=== PATIENT | female | born 1995 | race Caucasian/White ===

== ENCOUNTER → 2019-06-14 14:33 | Outpatient (CLI) | payer BC, SELFPAY ==
[2019-06-14 17:00] LABS: HCG,Quantitative 447 mIU/mL
== END ==
PROVIDERS: Visit Provider Obstetrics & Gynecology
DX: Z34.90 Encounter for supervision of normal pregnancy, unspecified, unspecified trimester (principal)
CPT/HCPCS: 36415; 84702

== ENCOUNTER → 2019-06-18 15:43 | Outpatient (CLI) | payer BC, SELFPAY ==
[2019-06-18 17:58] LABS: HCG,Quantitative 2840 mIU/mL
== END ==
PROVIDERS: Visit Provider Obstetrics & Gynecology
DX: Z34.90 Encounter for supervision of normal pregnancy, unspecified, unspecified trimester (principal)
CPT/HCPCS: 84702

== ENCOUNTER → 2019-06-26 12:28 | Outpatient (CLI) | payer BC, SELFPAY ==
[2019-06-26 18:37] LABS: HCG,Quantitative 25331 mIU/mL
== END ==
PROVIDERS: Visit Provider Obstetrics & Gynecology
DX: O26.859 Spotting complicating pregnancy, unspecified trimester (principal)
CPT/HCPCS: 36415; 84702

== ENCOUNTER → 2019-07-04 13:53 | Outpatient (CLI) | payer BC, SELFPAY ==
--- NOTE | 2019-07-04 13:55 | US_ITS ---
PROCEDURE: US OB TRANSVAGINAL CLINICAL INDICATION: US OB Dates Early Ob ultrasound COMPARISON: TVP US TRANSVAGINAL PREG from 01/17/2017 FINDINGS: An intrauterine gestational sac is present with a pole with a crown-rump length of 0.85 cm correlating to gestational age of 6 weeks 6 days. heart tones are present with an FHR of 136 bpm. Yolk sac is noted. 18 mm right corpus luteum cyst IMPRESSION: Single live IUP at 6 weeks 6 days Estimated due date by Ultrasound is 02/21/2020 Dictated by: Reid Perez MD 07/05/2019 16:17 Electronically signed by Reid Perez MD in [place] 07/05/2019 16:17
== END ==
LOC: RAD 13:53
PROVIDERS: PCP Family Medicine; Visit Provider Obstetrics & Gynecology
DX: O26.841 Uterine size-date discrepancy, first trimester (principal)
CPT/HCPCS: 76817

== ENCOUNTER 2019-07-11 08:10 | Outpatient (CLI) | payer BC, SELFPAY ==
[2019-07-11] VITALS (8 sets, daily range): BP systolic 92–110; BP diastolic 50–69; PULSE 74–105; RESP 16–18; TEMP 37.4–37.5; O2SAT 100
== END 2019-07-11 15:40 | disposition home or self-care (01) ==
LOC: INF 08:11
PROVIDERS: PCP Family Medicine; Visit Provider Family Medicine
DX: R11.10 Vomiting, unspecified (principal)
CPT/HCPCS: 96360; 96361; 96367; 96375

== ENCOUNTER → 2019-08-02 12:26 | Outpatient (CLI) | payer BC, SELFPAY ==
[2019-08-02 12:50] LABS: Basophils % 0.2 % (0.1-2.0); Eosinophils # 0.1 K/mm3 (0.0-0.4); Eosinophils % 0.7 % (0.1-12.0); Hematocrit 36.6 % (37.0-47.0); Hemoglobin 12.1 g/dL (12.2-16.2); Lymphocytes # 1.9 K/mm3 (0.7-4.5); Lymphocytes % 22.6 % (10-50); Mean Corpuscular HGB Conc 33.2 g/dL (31.8-35.4); Mean Corpuscular Hemoglobin 29.7 pg (27.0-31.2); Mean Corpuscular Volume 89.5 fl (81-99); Mean Platelet Volume 7.7 fl (7.4-10.4); Monocytes # 0.5 K/mm3 (0.1-1.0); Monocytes % 5.2 % (1.7-9.3); Neutrophils # 6.1 K/mm3 (1.8-7.8); Neutrophils % 71.2 % (37.0-80.0); Platelet Count 195 K/mm3 (142-424); Red Blood Count 4.09 M/mm3 (4.20-5.40); Red Cell Distribution Width 12.1 % (11.5-17.5); White Blood Count 8.6 K/mm3 (4.8-10.8)
[2019-08-03 06:51] LABS: Hepatitis B Surface Antigen Negative (Negative); Hepatitis C Antibody <0.1 s/co ratio (0.0-0.9)
[2019-08-03 09:23] LABS: HIV Screen 4th Generation wRfx Non Reactive (Non Reactive); Rubella Antibodies, IgG 1.62 index (Immune >0.99)
[2019-08-03 17:32] LABS: Rapid Plasma Reagin Ab Titer Non Reactive (NonRea<1:1)
== END ==
PROVIDERS: Visit Provider Obstetrics & Gynecology
DX: Z34.90 Encounter for supervision of normal pregnancy, unspecified, unspecified trimester (principal)
CPT/HCPCS: 36415; 85025; 86592; 86703; 86762; 86850; 87340; 87380; G0432

== ENCOUNTER → 2019-08-10 13:19 | Outpatient (CLI) | payer BC, SELFPAY ==
--- NOTE | 2019-08-10 13:19 | US_ITS ---
PROCEDURE: US OB FOLLOW UP CLINICAL INDICATION: US OB- possible leakage of amniotic fluid COMPARISON: US OB TRANSVAGINAL from 07/04/2019 FINDINGS: The cervix has an unremarkable appearance measuring 4 cm in length by transvaginal approach. Cervix is closed. There is a single live fetus present. heart tones are present. Adnexa are unremarkable. The crown-rump length is 6.04 cm correlating to gestational age of 12 weeks and 4 days. Yolk sac is present. IMPRESSION: Live IUP at 12 weeks 4 days. Estimated due date by ultrasound is 02/18/2020. Cervix appears closed Dictated by: Reid Perez MD 08/10/2019 14:15 Electronically signed by Reid Perez MD in [place] 08/10/2019 14:15
== END ==
PROVIDERS: PCP Family Medicine; Visit Provider Obstetrics & Gynecology
DX: O42.90 Premature rupture of membranes, unspecified as to length of time between rupture and onset of labor, unspecified weeks of gestation (principal)
CPT/HCPCS: 76816

== ENCOUNTER → 2019-09-27 12:44 | Outpatient (CLI) | payer BC, SELFPAY ==
--- NOTE | 2019-09-27 12:49 | US_ITS ---
PROCEDURE: US OB /MATERNAL DETAIL CLINICAL INDICATION: ANATOMY SCAN COMPARISON: US OB FOLLOW UP from 08/10/2019 FINDINGS: There is a single live fetus in cephalic presentation. heart body motion noted. Cervix is closed and measures 3 cm. Placenta is anterior and grade 1. Complete survey performed and was unremarkable on the submitted images as in PACS. No discrete anomalies identified on survey imaging by technologist. Active fetus. Three-vessel cord with satisfactory umbilical cord insertion. 4- chamber heart noted. Survey of brain & ventricles Unremarkable. Face and neck survey unremarkable. Diaphragm and chest views unremarkable. Abdomen: Both kidneys noted and unremarkable. Stomach noted and satisfactory. Spine: Survey of the spine satisfactory with no anomalies identified nor imaged. Both arms and legs noted. Amniotic Fluid: Adequate. Maternal adnexa: No significant findings. Measurements: Average ultrasound age 20weeks. Gestational Age 19 weeks 1 day Estimated due date by ultrasound age 0702/14/2020. Estimated weight 313g BPD = 20weeks 4days OFD = 20 weeks 3 days HC = 19weeks 5days AC = 19weeks 6days FL = 19weeks 6days Growth Percentile= 82% Heart Rate = 139bpm Cerebellum = 20weeks 4days Humerus = 19weeks 5days HC/AC is 1.18 CI is 0.8 FL/BPD is 0.65 FL/AC is 0.22 IMPRESSION: There is a single live fetus which is in cephalic presentation with an average ultrasound age of 20 weeks. All parameters correlate with no obvious anomalies. Please see above for detail. Dictated by: Reid Perez MD 09/27/2019 17:04 Electronically signed by Reid Perez MD in [place] 09/27/2019 17:04
== END ==
LOC: RAD 12:46
PROVIDERS: PCP Family Medicine; Visit Provider Obstetrics & Gynecology
DX: Z36.0 Encounter for antenatal screening for chromosomal anomalies (principal)
CPT/HCPCS: 76811

== ENCOUNTER → 2019-11-23 08:40 | Outpatient (CLI) | payer BC, SELFPAY ==
[2019-11-23 09:27] LABS: Glucose,Fasting 78 mg/dl (74-100)
[2019-11-23 11:11] LABS: Glucose 1 Hour 160 mg/dL (74-100)
== END ==
PROVIDERS: Visit Provider Obstetrics & Gynecology
DX: Z34.90 Encounter for supervision of normal pregnancy, unspecified, unspecified trimester (principal)
CPT/HCPCS: 36415; 82951

== ENCOUNTER → 2019-12-04 08:51 | Outpatient (CLI) | payer BC, SELFPAY ==
[2019-12-04 09:25] LABS: Glucose,Fasting 80 mg/dl (74-100)
[2019-12-04 10:36] LABS: Glucose 1 Hour 156 mg/dL (74-100)
[2019-12-04 11:51] LABS: Glucose 2 Hour 129 mg/dL (74-100)
[2019-12-04 13:09] LABS: Glucose 3 Hour 125 mg/dL (74-100)
== END ==
PROVIDERS: Visit Provider Obstetrics & Gynecology
DX: Z34.90 Encounter for supervision of normal pregnancy, unspecified, unspecified trimester (principal)
CPT/HCPCS: 36415; 82951

== ENCOUNTER → 2020-01-10 13:48 | Outpatient (CLI) | payer BC, SELFPAY ==
--- NOTE | 2020-01-10 13:48 | US_ITS ---
PROCEDURE: US OB FOLLOW UP CLINICAL INDICATION: US OB- growth and AGY- SGA Small for gestational age COMPARISON: US OB /MATERNAL DETAIL from 09/27/2019 FINDINGS: There is a single live fetus which is in cephalic presentation. The cervix is closed measuring 4 cm transabdominal. The placenta is anterior and grade 1. The amniotic fluid index is upper normal at 18 cm. Average ultrasound age is 35 weeks 5 days. BPD 36 weeks 6 days, OFD 36 weeks 0 days, HC 35 weeks 6 days, AC 35 weeks 5 days, FL 34 weeks 3 days. All parameters correlate. Estimated weight is 2676 g which is 81 the percent. No obvious anomalies demonstrated IMPRESSION: Live IUP at 35 weeks 5 days in cephalic presentation. Amniotic fluid index upper normal at 18 cm Estimated weight 2676 g which is 81 percent Dictated by: Reid Perez MD 01/10/2020 16:41 Electronically signed by Reid Perez MD in [place] 01/10/2020 16:41
== END ==
LOC: RAD 13:48
PROVIDERS: PCP Family Medicine; Visit Provider Obstetrics & Gynecology
DX: O36.5990 Maternal care for other known or suspected poor fetal growth, unspecified trimester, not applicable or unspecified (principal)
CPT/HCPCS: 76816

== ENCOUNTER → 2020-01-18 13:37 | Outpatient (CLI) | payer BC, SELFPAY | LOC: LAB 13:38 → LAB.DROPOF 13:38 | PROVIDERS: Visit Provider Obstetrics & Gynecology | DX: Z34.90 Encounter for supervision of normal pregnancy, unspecified, unspecified trimester (principal) | CPT/HCPCS: 86403 ==

== ENCOUNTER 2020-02-07 04:53 | Inpatient (IN) | payer BC, SELFPAY ==
[2020-02-07 05:07] VITALS: BMI 24.7
[2020-02-07 06:10] LABS: Microscopic, Urine URINE MICROSCOPIC (MICROSCOPIC)
[2020-02-07 06:13] LABS: Basophils % 0.1 % (0.1-2.0); Eosinophils # 0.1 K/mm3 (0.0-0.4); Hematocrit 34.7 % (37.0-47.0); Lymphocytes # 2.1 K/mm3 (0.7-4.5); Lymphocytes % 20.9 % (10-50); Mean Corpuscular HGB Conc 34.7 g/dL (31.8-35.4); Mean Corpuscular Hemoglobin 32.7 pg (27.0-31.2); Mean Corpuscular Volume 94.3 fl (81-99); Mean Platelet Volume 7.9 fl (7.4-10.4); Monocytes # 0.7 K/mm3 (0.1-1.0); Monocytes % 7.1 % (1.7-9.3); Neutrophils # 7.3 K/mm3 (1.8-7.8); Neutrophils % 70.9 % (37.0-80.0); Platelet Count 168 K/mm3 (142-424); Red Blood Count 3.67 M/mm3 (4.20-5.40); Red Cell Distribution Width 13.5 % (11.5-17.5); White Blood Count 10.3 K/mm3 (4.8-10.8)
[2020-02-07 06:19] LABS: Appearance,Urine CLEAR (Clear); Bilirubin,Urine Negative (Negative); Blood, Urine Negative (Negative); Color,Urine YELLOW (Yellow); Glucose,Urine (UA) Negative (Negative); Ketones,Urine TRACE (Negative); Leukocyte Esterase,Urine TRACE (Negative); Nitrate,Urine Negative (Negative); PH,Urine 6.5 (5.0-8.5); Protein,Urine Negative (Negative); Specific Gravity, Urine 1.015 (1.005-1.030); Urobilinogen,Urine 0.2 EU/dl (0.2)
[2020-02-07 06:30] VITALS: BP 123/60; PULSE 112; RESP 18; TEMP 36.7; O2SAT 99; BMI 24.5
[2020-02-07 06:30] LABS: Amphetamine/Metha Screen,Urine Negative ng/ml (<1000)
[2020-02-07 06:31] LABS: Barbiturates Screen,Urine Negative ng/ml (<200)
[2020-02-07 06:32] LABS: Benzodiazepines Screen,Urine Negative ng/ml (<200); Cannabinoid Screen,Urine Negative ng/ml (<50)
[2020-02-07 06:33] LABS: Cocaine Screen,Urine Negative ng/ml (<300); Methadone Screen,Urine Negative ng/ml (<300)
[2020-02-07 06:34] LABS: Opiate Screen,Urine Negative ng/ml (<300)
[2020-02-07 06:35] LABS: Phencyclidine Screen,Urine Negative ng/ml (<25)
[2020-02-07 06:55] LABS: Coronavirus 19 IgG Antibody Negative (Negative); Coronavirus 19 IgM Antibody Negative (Negative)
[2020-02-07 07:24] VITALS: BP 122/61; PULSE 96; RESP 18; TEMP 36.7; O2SAT 98
[2020-02-07 16:16] VITALS: BP 124/63; PULSE 79; RESP 18; TEMP 36.4; O2SAT 100
--- NOTE | 2020-02-07 17:11 | HMH.DN ---
- Delivery Note Delivery Date:: 02/07/20 Delivery Time:: 15:03 Anesthesia Type: Epidural Was labor medically induced?: Yes delivered prior to 39 weeks?: Yes Justification for early elective delivery:: Polydraminos (LGA with previous shoulder dystocia) Infant Gender: Female at 1 minute: 8 at 5 minutes: 9 Delivery Procedure:: Spontaneous vaginal delivery of liveborn female infant over intact perineum. No nuchal cord Shoulder dystocia lasting less than 15 seconds with delivery relieved with macroberts and suprapubic pressure Infant placed in CHRISSY with mother immediately after umbilical cord clamped/cut, with standard nursing assessment performed Apgars: 8 & 9 Placenta spontaneously expressed and examined; noted to be complete/intact. Vulva, vagina, and cervix inspected; bilateral periurethral lacerations present. Repair with 3-0 vicryl for hemostasis. EBL: 375 cc All sponge/needle/instrument counts correct at conclusion of procedure Disposition: Mom/baby stable to recovery in LDRP Laceration:: labial Placental Delivery Description: Spontaneous
--- NOTE | 2020-02-07 17:33 | P.PN_ITS ---
[facility] Anesthesia Checklist - Structural Data Admitted From: Inpatient Planned Operative Procedure/s: labor epidural Consent for Planned Operative Procedure(s) Verified: Yes - Airway Assessment C-Spine Mobility Assessed: Yes TMJ Mobility Assessed: Yes Dentition: Good Dentition - Neurological Assessment Level of Consciousness: Awake, Alert, Appropriate - Anesthesia Plan Anesthesia Risk discussed: Yes Anesthesia Plan: Verified ASA Class: II Anesthesia Type: Epidural [facility] History I have reviewed the patient's past medical history: Yes *Have you ever received a pneumonia vaccine?: No *Have you received a flu vaccine this season?: Yes Anesthesia experience/problems:: none Other Surgeries: Yes: Dilation and Curettage, Other. No: Amputation: No Fractures: No - *Social History Smoking Status: Never smoker Alcohol Intake: never Substance Use Type: denies use *Occupational Status:: employed Housing: house Household Members: spouse, children *Travel in the last 8 weeks: None Family Hx:: Non-contributory [employer] history: Spontaneous Para: 1
[2020-02-07 20:15] VITALS: BP 116/55; PULSE 73; RESP 17; TEMP 36.7
[2020-02-08 06:56] LABS: Hematocrit 34.4 % (37.0-47.0); Hemoglobin 11.7 g/dL (12.2-16.2)
[2020-02-08 08:12] VITALS: BP 101/50; PULSE 81; RESP 16; TEMP 36.7; O2SAT 96
[2020-02-08 12:15] VITALS: BP 105/64; PULSE 71; RESP 18; TEMP 36.7; O2SAT 97
--- NOTE | 2020-02-08 13:17 | HMH.ACPN2 ---
Internal Medicine - PN: Subj *Date: 02/08/20 *Time: 13:17 Interval history: PPD #1 No unusual complaints Lochia appropriate Tolerating regular diet, ambulating and voiding without difficulty Exam Vital signs and Labs for Last 24 Hours: Temp Pulse Resp BP Pulse Ox 98.1 F 71 18 105/64 L 97 02/08/20 12:15 02/08/20 12:15 02/08/20 12:15 02/08/20 12:15 02/08/20 12:15 Laboratory Results - last 24 hr 02/08/20 06:08: Hgb 11.7 L, Hct 34.4 L I & O for Last 24 hours: Intake & Output 02/06/20 02/07/20 02/08/20 02/09/20 11:59 11:59 11:59 11:59 Weight 153 lb Narrative: CONSTITUTIONAL: no acute distress HEENT: mucous membranes moist PULMONARY: breathing unlabored without audible wheezes CV: no tachycardia or visible JVD; normal LE peripheral pulses ABD: soft, NT/ND, no guarding : fundus firm at/below umbilicus SKIN: no visible rash or lesions EXT: 1+ edema LEs NEURO: alert/oriented, no altered mental status PSYCH: appropriate mood and demeanor without visible anxiety/depression Assessment and Plan (1) Vaginal delivery Current visit: Yes Status: Acute Category: Medical Code(s): O80 - Encounter for full-term uncomplicated delivery (2) Prior shoulder dystocia at delivery, antepartum Problem details: clavicle fracture Current visit: Yes Status: Acute Category: Medical Code(s): O09.299 - Supervision of with other poor reproductive or obstetric history, unspecified trimester (3) Large for dates fetus Problem details: EFW 81% Current visit: Yes Status: Acute Category: Medical - Assessment and plan all Dx Assessment and Plan for all problems:: Routine care Anticipate discharge home tomorrow
[2020-02-08 16:18] VITALS: BP 119/58; PULSE 69; RESP 18; TEMP 36.8; O2SAT 97
[2020-02-09 08:15] VITALS: BP 113/58; PULSE 83; RESP 18; TEMP 36.7; O2SAT 98
--- NOTE | 2020-02-09 09:40 | P.PN_ITS ---
Internal Medicine - PN: Subj *Date: 02/09/20 *Time: 09:40 (Vital signs stable. Abdomen soft. Lochia normal. Breast-feeding well. Impression: Stable. She will be discharged today.) Exam Vital signs and Labs for Last 24 Hours: Temp Pulse Resp BP Pulse Ox 98.0 F 83 18 113/58 L 98 02/09/20 08:15 02/09/20 08:15 02/09/20 08:15 02/09/20 08:15 02/09/20 08:15 I & O for Last 24 hours: Intake & Output 02/06/20 02/07/20 02/08/20 02/09/20 11:59 11:59 11:59 11:59 Weight 153 lb Assessment and Plan (1) Vaginal delivery Current visit: Yes Status: Acute Category: Medical Code(s): O80 - Encounter for full-term uncomplicated delivery (2) Prior shoulder dystocia at delivery, antepartum Problem details: clavicle fracture Current visit: Yes Status: Acute Category: Medical Code(s): O09.299 - Supervision of with other poor reproductive or obstetric history, unspecified trimester (3) Large for dates fetus Problem details: EFW 81% Current visit: Yes Status: Acute Category: [facility]
--- NOTE | 2020-02-09 09:41 | HMH.DCSUM ---
General - General Admission date:: 02/07/20 Discharge date: 02/09/20 (This 24-year-old 2, now para 2, Ab0 white female was admitted on 02/07/2020 at term for induction. She delivered spontaneously an 8 pound 8 ounce female infant, without complications. She sustained a first-degree perineal laceration, which was repaired in the usual fashion. , the patient has done well. She is eating ambulating, and has had a bowel movement. Her abdomen is soft. Her uterine fundus is involuting well. Her lochia is normal. Her perineum is healing well. Maternal blood type is AB Rh+. 1 last question her hemoglobin 11.7 grams. She is discharged home on iron and vitamins and on Tylenol and Motrin, as needed for pain. She is given appropriate instructions as to diet and exercise, and wound care, and she is to return to the office to see Dr. Serna in 1 week.) Hospital Course Rhogam Administration: Not Indicated Objective Vital signs: Temp Pulse Resp BP Pulse Ox 98.0 F 83 18 113/58 L 98 02/09/20 08:15 02/09/20 08:15 02/09/20 08:15 02/09/20 08:15 02/09/20 08:15 DS: Diagnosis - Discharge Diagnosis (1) Vaginal delivery Status: Acute (2) Prior shoulder dystocia at delivery, antepartum Status: Acute Problem details: clavicle fracture (3) Large for dates fetus Status: Acute Problem details: EFW 81% Discharge Plan - Patient Discharge Instructions - Follow up Plan Home Medications: Home Medications Medication Instructions Recorded Confirmed Type folic acid 800 mcg tablet 0.8 mg PO DAILY 08/15/19 02/07/20 History Ferrous Sulfate 325 mg PO BID 02/07/20 02/07/20 History Prescriptions/Medication Reconciliation: No Action folic acid 800 mcg tablet 0.8 mg PO DAILY Ferrous Sulfate 325 mg PO BID - Problem Reconciliation Problems Reviewed?: Yes
== END 2020-02-09 11:15 | disposition home or self-care (01) | DRG 807 ==
PROVIDERS: Admitting Provider Obstetrics & Gynecology; PCP Family Medicine; Visit Provider Obstetrics & Gynecology
DX: O36.63X0 Maternal care for excessive fetal growth, third trimester, not applicable or unspecified (principal); Z37.0 Single live birth; O66.0 Obstructed labor due to shoulder dystocia; Z3A.38 38 weeks gestation of pregnancy; O70.0 First degree perineal laceration during delivery; O40.3XX0 Polyhydramnios, third trimester, not applicable or unspecified
CPT/HCPCS: 59409; 36415; 80305; 81001; 85014; 85018; 85025; 86328; 86850; 94761

== ENCOUNTER 2021-07-21 11:14 | Emergency (ER) | payer OTHER, SELFPAY ==
[2021-07-21 11:20] VITALS: BP 123/70; PULSE 67; RESP 19; TEMP 37.1; O2SAT 97; BMI 18.8
--- NOTE | 2021-07-21 11:57 | HMH.EDUTC ---
[facility] [place] Clinical Impression: Viral syndrome Disposition: Home, Self-Care Condition on Discharge: Good Instructions: DI for Viral Syndrome, DI for COVID-19 (Suspected or Confirmed ), Preventing the Spread of Coronavirus Discharge Instructions Additional Instructions: *Monitor Temp, Over the counter Motrin or Tylenol as directed/as needed Tylenol every 4 hours and Motrin every 6 hours (as long as your family doctor has told you that you can take it) for fever or pain. and straight to ER if unable to lower temp less than 101.0 after medication given *Warm salt water gargles may help to soothe the throat *Throat Lozenges *Warm fluids like tea with honey may help to soothe the throat *Sleep elevated *Humidifier/Vaporizer Follow up IMMEDIATELY for new or worsening symptoms or no Noticeable improvement over the next 48-72 hours. 911 for difficulty breathing or swallowing You were tested for today for COVID19 your test result should be back in the next 24-48 hours, you may check your COVID test results on the [facility] Portal if you have trouble logging on you may call You was given a handout with instructions for Self Quarantine and Self isolation for while you wait on test results and what to do if they are positive If you are positive the Health Dept will be contacting you also Make sure to take your Vitamins Vit. C Vit D and Zinc if you can take them Referrals: Tavares Knott MD [Primary Care Provider] - As needed Forms: Work/School Release Medical Decision Making - Idris Inquiry Pt receiving controlled substance: No Idris was queried for this patient: No Vital Signs: 07/21/21 11:20 Temperature 98.7 F Temperature Source Oral Pulse Rate [Right Brachial] 67 Respiratory Rate 19 Blood Pressure [Right Arm] 123/70 Blood Pressure Mean [Right Arm] 87 Blood Pressure Source [Right Arm] Automatic Cuff Blood Pressure Position [Right Arm] Sitting 02 Sat by Pulse Oximetry 97 Oxygen Delivery Method Room Air Orders (Tests/Meds): ORDERS Category Date Time Status Covid-19 Nasal PCR ([facility]) Routine Lab 07/21/21 11:30 Received [facility] [place] HPI - General Stated complaint: covid symptoms Time Seen by Provider: 07/21/21 11:57 Mode of Arrival: Ambulatory Source of Information: Patient Limitations: No Limitations Description of Symptoms (Recalled from Triage Doc. by RN): PATIENT C/O COUGH, DECREASED ENERGY, RUNNY NOSE, AND LOSS OF TASTE AND SMELL SINCE TUESDAY HEENT Symptoms (Recalled from RN notes): Yes Resp Symptoms (Recalled from RN notes): Yes Skin Symptoms (Recalled from RN notes): No MS Symptoms (Recalled from RN notes): No Functional Status (Recalled from RN notes): WNL - History of Present Illness Provider Complaint: Patient states that she has been not feeling well for several days States that she started on Tuesday with cough and runny nose and that continued throughout the weekend States that this morning she noticed she wasnt able to taste or smell anything so she came in to get checked and tested for COVID - Related Data Home Medications Medication Instructions Recorded Confirmed multivitamin 1 cap PO DAILY 03/24/20 Allergies Allergy/AdvReac Type Severity Reaction Status Date / Time No Known Allergies Allergy Verified 03/24/20 13:58 - Worker's Comp Is this a Worker's Comp case?: No [facility] History - Hepatitis A Screen Drug use history?: No High risk sexual behaviors?: No History of sexually transmitted infection?: No Currently employed?: No Childcare worker?: No Do you have indoor plumbing?: Yes Do you have electricity?: Yes Attestation statement:: This patient has been screened for Hepatitis A risk factors. I have reviewed the patient's past medical history: Yes Other Surgeries: Yes: Dilation and Curettage, Other. No: Amputation: No Fractures: No Comment: D&C - Social History Smoking Status: Never smoker Alcohol Intake: never Substance Use Type: den
[2021-07-21 12:12] VITALS: BP 123/70; PULSE 67; RESP 19; TEMP 37.1; O2SAT 97
== END 2021-07-21 12:22 | disposition home or self-care (01) ==
PROVIDERS: Emergency Provider Nurse Practitioner; PCP Family Medicine
DX: U07.1 COVID-19 (principal); B34.9 Viral infection, unspecified
CPT/HCPCS: 99202; C9803; G0463; U0003; U0005

== ENCOUNTER 2022-01-25 10:49 | Emergency (ER) | payer OTHER, SELFPAY ==
--- NOTE | 2022-01-25 10:58 | XR_ITS ---
FINAL REPORT CLINICAL HISTORY: cough x 3 wks FINDINGS: Two views of the chest were obtained. The heart size and pulmonary vascularity are within normal limits. The mediastinum is normal. No acute pulmonary abnormality is identified. There is no pneumothorax. The bony thorax is intact. IMPRESSION: No active cardiopulmonary disease. Reviewed, Interpreted and Dictated by Rene Wood III, MD Transcribed by Nat Lehman Authenticated and [facility]
[2022-01-25 11:02] VITALS: BP 107/66; PULSE 82; RESP 17; TEMP 36.9; O2SAT 100; BMI 19.7
--- NOTE | 2022-01-25 11:14 | HMH.EDUTC ---
[place] Disposition Clinical Impression: Viral syndrome Acute bronchitis Qualifiers: Bronchitis organism: unspecified organism Qualified Code(s): J20.9 - Acute bronchitis, unspecified Disposition: Home, Self-Care Condition on Discharge: Good Instructions: Acute Bronchitis, DI for Acute Bronchitis Additional Instructions: Drink plenty of fluids. Take tylenol or ibuprofen for pain or fever. Take the medications as directed. Follow up with your regular doctor. GO TO THE ER FOR ANY WORSENING SYMPTOMS The cough medication (promethazine dm) will make you drowsy, so don't drive or operate heavy machinery after taking it. Prescriptions: Promethazine/Dextromethorphan [Promethazine-Dm Syrup] 5 ml PO Q6HP PRN #240 ml PRN Reason: Cough Transmission Status: [id number] Benzonatate [Benzonatate 100mg cap] 100 mg PO TIDP PRN #30 cap PRN Reason: Cough Transmission Status: Received by [id number] methylPREDNISolone [Medrol] 4 mg PO DIRECTED 6 Days #21 packet Transmission Status: Received by [id number] Azithromycin [Z-Naeem 250mg Tab*] 250 mg PO UD DOSE PK #6 tab Transmission Status: Received by [id number] Referrals: Tavares Knott MD [Primary Care Provider] - Time of Disposition: 11:28 Medical Decision Making - Medical Records Medical records reviewed: No: I reviewed the patient's medical records. - Idris Inquiry Pt receiving controlled substance: No Vital Signs: 01/25/22 11:02 01/25/22 11:28 Temperature 98.4 F 98.4 F Temperature Source Oral Pulse Rate 82 Pulse Rate [Left] 82 Respiratory Rate 17 17 Blood Pressure 107/66 L Blood Pressure [Right Arm] 107/66 L Blood Pressure Mean [Right Arm] 79 02 Sat by Pulse Oximetry 100 - Lab Data Lab results reviewed: Yes: I reviewed the patient's lab results. Lab Results 01/25/22 11:26: Chlamy pneumoniae PCR Not detected, Adenovirus (PCR) Not detected, B. pertussis DNA (PCR) Not detected, Coronavirus OC43 (PCR) Not detected, Coronavirus HKU1 (PCR) Not detected, Coronavirus 229E (PCR) Not detected, SARS-CoV-2 (PCR) Not detected, Coronavirus NL63 (PCR) Not detected, Human Metapneumovir PCR Not detected, Influenza A (H1) PCR Not detected, Influ A (H1N1/09) PCR Not detected, Influenza A (H3) PCR Not detected, Influenza Type A (PCR) Not detected, Influenza Type B (PCR) Not detected, M. pneumoniae (PCR) Not detected, Parainfluenza 1 (PCR) Not detected, Parainfluenza 2 (PCR) Not detected, Parainfluenza 3 (PCR) Not detected, Parainfluenza 4 (PCR) Not detected, RSV (PCR) Not detected, Entero/Rhino (PCR) Not detected [place] HPI - General Stated complaint: dry cough Time Seen by Provider: 01/25/22 11:14 Description of Symptoms (Recalled from Triage Doc. by RN): patient comes in for dry cough. patient states that she has had a dry cough for 3 weeks. she has tried otc cough medicine, and otc allergy medicine and nothing has helped HEENT Symptoms (Recalled from RN notes): No Resp Symptoms (Recalled from RN notes): Yes Skin Symptoms (Recalled from RN notes): No MS Symptoms (Recalled from RN notes): No Functional Status (Recalled from RN notes): wnl - History of Present Illness Provider Complaint: She states that for the past 2 weeks she has had sinus congestion, sinus drainage and a nonproductive cough. She denies any fever or chills. - Related Data Home Medications Medication Instructions Recorded Confirmed multivitamin 1 cap PO DAILY 03/24/20 10/13/21 Previous Rx's Medication Instructions Recorded Azithromycin [Z-Naeem 250mg Tab*] 250 mg PO UD DOSE PK #6 tab 01/25/22 Benzonatate [Benzonatate 100mg 100 mg PO TIDP PRN #30 cap 01/25/22 cap] Promethazine/Dextromethorphan 5 ml PO Q6HP PRN #240 ml 01/25/22 [Promethazine-Dm Syrup] methylPREDNISolone [Medrol] 4 mg PO DIRECTED 6 Days #21 01/25/22 packet Allergies Allergy/AdvReac Type Severity Reaction Status Date / Time No
[2022-01-25 11:28] VITALS: BP 107/66; PULSE 82; RESP 17; TEMP 36.9
[2022-01-25 11:38] LABS: Adenovirus,PCR Not Detected (NotDetected); Bordetella Pertussis Not Detected (NotDetected); Chlamydophila Pneumoniae, PCR Not Detected (NotDetected); Coronavirus 19, PCR Not Detected (NotDetected); Coronavirus 229E Not Detected (NotDetected); Coronavirus NL63 Not Detected (NotDetected); Coronavirus OC43 Not Detected (NotDetected); Coronovirus HKU1,PCR Not Detected (NotDetected); Human Metapneumovirus Not Detected (NotDetected); Influenza A, PCR Not Detected (NotDetected); Influenza AH1, 2009 Not Detected (NotDetected); Influenza AH1, PCR Not Detected (NotDetected); Influenza AH3,PCR Not Detected (NotDetected); Influenza B, PCR Not Detected (NotDetected); Mycoplasma Pneumoniae, PCR Not Detected (NotDetected); Parainfluenza 1, PCR Not Detected (NotDetected); Parainfluenza 2, PCR Not Detected (NotDetected); Parainfluenza 3, PCR Not Detected (NotDetected); Parainfluenza 4, PCR Not Detected (NotDetected); Respiratory Syncytial Virus Not Detected (NotDetected); Rhinovirus/Enterovirus Not Detected (NotDetected)
== END 2022-01-25 11:32 | disposition home or self-care (01) ==
PROVIDERS: Emergency Provider Nurse Practitioner Family; PCP Family Medicine
DX: J20.9 Acute bronchitis, unspecified (principal); B34.9 Viral infection, unspecified
CPT/HCPCS: 71046; 87581; 87632; 87798; 99212; C9803; G0463; U0003; U0005

== ENCOUNTER 2023-08-26 08:12 | Outpatient (CLI) | payer BC, OTHER, SELFPAY ==
[2023-08-26 10:16] LABS: HCG,Quantitative 26715 mIU/ml (0-5.42)
[2023-08-27 08:19] LABS: Progesterone 14.2 ng/mL (.)
== END 2023-08-26 23:59 ==
PROVIDERS: PCP Physician Assistant; Visit Provider Obstetrics & Gynecology
DX: N92.6 Irregular menstruation, unspecified (principal)
CPT/HCPCS: 36415; 84144; 84702

== ENCOUNTER 2023-09-12 08:23 | Emergency (ER) | payer BC, OTHER, SELFPAY ==
[2023-09-12 08:24] VITALS: BP 112/68; PULSE 96; RESP 18; TEMP 36.6; O2SAT 100; BMI 19.8
--- NOTE | 2023-09-12 08:50 | PC.NURSE ---
Dr Aguilera at bedside with ultrasound
--- NOTE | 2023-09-12 08:58 | US_ITS ---
PROCEDURE: US OB TRANSVAGINAL CLINICAL INDICATION: rlq pain, preg COMPARISON: No exams were available for comparison FINDINGS: Transvaginal sonographic images of the pelvis were obtained. From her last menstrual period she is 6weeks 6days. An intrauterine gestational sac is present with a pole with a crown-rump length of 1.96cm This correlates to a gestational age of 8weeks 4days. heart tones are present with an FHR of 174bpm. Yolk sac is noted. The yolk sac measures 4.1mm. There is a nabothian cyst in the cervix measuring 6.5 mm.. The right ovary is seen and appears normal. The left ovary is seen and appears normal. There appears to be a corpus luteum in the left ovary. There is no fluid in the cul-de-sac. IMPRESSION: 1. Single viable fetus within the uterine cavity. 2. Fetus measures 8 weeks and 4 days and her due date should be revised to reflect these dates. Her new DEANNA will be April 19, 2024. 3. Both ovaries are seen and appear normal. There is a corpus luteum in the left ovary. 4. No fluid in the cul-de-sac. 5. ER physician was notified. Dictated by: Luis Bains MD 09/12/2023 10:02 Luis Bains MD in [facility] 09/12/2023 10:02
[2023-09-12] MEDS: LACTATED RINGERS 1000ML 1,000 ML 999 ML IV (09:04)
[2023-09-12] MEDS: ONDANSETRON 4MG/2ML VIAL 4 MG IV (09:05)
[2023-09-12] MEDS: ACETAMINOPHEN 500MG TAB 1000 MG PO (09:05)
[2023-09-12 09:12] LABS: Chloride 103 mmol/L (98-107); Potassium 4.2 mmoL/L (3.5-5.1); Sodium 135 mmol/L (136-145)
--- NOTE | 2023-09-12 09:12 | HMH.EDGENADL ---
Discharge Plan Disposition Patient Disposition: Home, Self-Care Condition: Good Prescriptions Prescriptions: New ondansetron 4 mg tablet,disintegrating 4 mg PO Q6H PRN (Reason: nausea and vomiting) 4 Days Qty: 16 0RF No Action norgestimate-ethinyl estradiol [Sprintec (28)] 0.25-35 mg-mcg tablet 1 tab PO DAILY Qty: 28 11RF amitriptyline 10 mg tablet 10 mg PO HS Qty: 30 2RF Ubrelvy 100 mg tablet 100 mg PO DAILY PRN (Reason: headache) Qty: 16 0RF sumatriptan succinate [Imitrex] 100 mg tablet See Rx Instructions PO .COMPLEX Qty: 9 0RF Rx Instructions: take 1 tab at onset of headache; if no relief, may repeat 1 tab after at least 2 hrs; max = 2 tabs/24 hrs PO promethazine 12.5 mg tablet 12.5 mg PO TID Qty: 30 0RF ondansetron 4 mg tablet,disintegrating 4 mg PO Q8H Qty: 14 0RF Referrals Follow up/Referrals: Loretta Matta PA [Primary Care Provider] - See instructions Activity Restrictions/Add. Instructions Additional Instructions/Restrictions: You have been evaluated in the ED for your complaints. You may follow-up with your PCP in the next 3 to 5 days. Please return to ED for any new or worsening symptoms. Please keep your appointment with [facility] as discussed on the 27th of this month. Clinical Impressions Clinical Impression: Abdominal pain, Nausea & vomiting, Fatigue Instructions Patient Instructions: DI for Abdominal Pain-Adult, Nausea and Vomiting-Adult Discharge ED Provider: Rashard Aguilera Adult HPI General Chief complaint: Nausea/Vomiting/Diarrhea Stated complaint: 5 weeks stomach cramps Time Seen by Provider: 09/12/23 08:35 Mode of Arrival: Ambulatory Source of Information: Patient Limitations: No Limitations Description of Symptoms (Recalled from ER Triage Doc. by RN): patient reports she is 5 weeks and has been having severe nausea and vomiting, unable to tolerate anything PO. Called OB and was called in meds but has had no relief. Reports she has cramping that started yesterday denies bleeding. History of Present Illness HPI narrative: 28-year-old female G5, P2 SA 2, presents today for evaluation concerning lower abdominal cramping, nausea, vomiting, decreased p.o. intake, generalized fatigue over the past several days. Denies having any fevers, chills, chest pain, shortness of breath, dysuria or hematuria. She states that she is currently 5 to 6 weeks and has not had OB follow-up as of yet but has an appointment towards the end of the month. No further complaints. Related Data Previous Rx's Medication Instructions Recorded norgestimate 0.25 mg-ethinyl 1 tab PO DAILY #28 tabs 03/28/23 estradiol 35 mcg tablet (Sprintec (28)) amitriptyline 10 mg tablet 10 mg PO HS #30 tabs 04/27/23 sumatriptan succinate 100 mg See Rx Instructions PO .COMPLEX #9 04/27/23 tablet (Imitrex) tabs ubrogepant 100 mg tablet (Ubrelvy) 100 mg PO DAILY PRN headache #16 04/27/23 tabs promethazine 12.5 mg tablet 12.5 mg PO TID #30 tabs 09/02/23 ondansetron 4 mg disintegrating 4 mg PO Q8H #14 tabs 09/06/23 tablet ondansetron 4 mg disintegrating 4 mg PO Q6H PRN nausea and 09/12/23 tablet vomiting 4 days #16 tabs Allergies Allergy/AdvReac Type Severity Reaction Status Date / Time buspirone AdvReac Intermediate Dizziness Verified 04/27/23 08:35 [facility] Disclaimer: The information contained in this section may have been updated after the patient was seen, as this information can be updated by other users. Medical History History of vaccination against human papillomavirus Mood swings Social History Smoking Status: Never smoker alcohol intake: never substance use type: denies use current occupational status: employed Travel in the last 8 weeks: None household members: spouse and children housing: house ROS Obtained: Yes All systems reviewed & no additional complaints except as documented Physical Exam General General appearance: alert and in no apparent distress Head Head exam: atraumatic and normocephalic Eye Eye exam: Present normal appearance, PERRL and EOMI ENT ENT exam: Present normal oropharynx and mucous membranes moist Neck Neck exam: Present full ROM; Absent meningismus Respiratory Respiratory exam: Absent respiratory distress, wheezes, stridor or accessory muscle use Cardiovascular Cardiovascular exam: Present normal rhythm Abdominal Exam Abdominal exam: Present soft and tenderness (Mild tenderness palpation in the suprapubic region.); Absent distention, guarding, rebound or rigidity Neurological Exam Neurological exam: Present alert, oriented X3 and CN II-XII intact; Absent motor sensory deficit Psychiatric Psychiatric exam: Present normal affect and normal mood Skin Skin exam: Present warm and dry Medical Decision Making Medical Records Medical records reviewed: Yes I reviewed the patient's medical records. Idris Inquiry Pt receiving controlled substance: No Idris was queried for this patient: No Vital Signs: 09/12/23 08:24 09/12/23 09:43 Temperature 97.8 F Temperature Source Oral Pulse Rate 77 Pulse Rate [Right] 96 H Respiratory Rate 18 20 Blood Pressure 104/65 L Blood Pressure [Right Arm] 112/68 Blood Pressure Mean 77 Blood Pressure Mean [Right Arm] 82 Blood Pressure Source [Right Arm] Automatic Cuff 02 Sat by Pulse Oximetry 100 98 Oxygen Delivery Method Room Air Lab Data Lab Results 09/12/23 08:40: WBC 6.5, RBC 4.64, Hgb 14.3, Hct 41.7, MCV 89.9, MCH 30.7, MCHC 34.2, RDW 12.7, Plt Count 185, MPV 8.5, Neut % (Auto) 66.5, Lymph % (Auto) 26.3, [place] % (Auto) 5.7, Eos % (Auto) 1.0, Baso % (Auto) 0.5, Neut # (Auto) 4.3, Lymph # (Auto) 1.7, [place] # (Auto) 0.4, Eos # (Auto) 0.1, Baso # (Auto) 0.0, Sodium 135 L, Potassium 4.2, Chloride 103, Carbon Dioxide 23, Anion Gap 13.2, BUN 11, Creatinine 0.50 L, Estimated Creat Clear 146, Estimated GFR 146, Est GFR ( Amer) 177, Glucose 102 H, Calcium 9.5, Total Bilirubin 1.5 H, AST 45 H, ALT 23, Alkaline Phosphatase 39, Total Protein 9.0 H, Albumin 5.0, Globulin 4.0 H, Albumin/Globulin Ratio 1.3, Lipase 46, HCG, Quant [id number] H 09/12/23 10:11: SARS-CoV-2 (PCR) Not detected, Influenza A Untype (PCR) Not detected, Influenza Type B (PCR) Not detected 09/12/23 10:12: Urine Color Yellow, Urine Appearance Clear, Urine pH 8.0, Ur Specific Hedley 1.020, Urine Protein Negative, Urine Glucose (UA) Negative, Urine Ketones Negative, Urine Blood Negative, Urine Nitrate Negative, Urine Bilirubin Negative, Urine Urobilinogen 0.2, Ur Leukocyte Esterase Negative, Urine RBC None, Urine WBC None, Ur Squamous Epith Cells 10-20, Amorphous Sediment Trace 09/12/23 08:40 09/12/23 08:40 Orders (Tests/Meds): ED MEDICATIONS Discontinued Medications Generic Name Dose Route Start Last Admin Trade Name Freq PRN Reason Stop Dose Admin Acetaminophen 1,000 mg 09/12/23 08:58 09/12/23 09:05 Acetaminophen 500mg Tab PO 09/12/23 08:59 1,000 mg ONCE ONE Administration Lactated Ringer's 1,000 mls @ 999 mls/hr 09/12/23 08:58 09/12/23 09:04 Lactated Ringer's 1000 Ml Bag IV 09/12/23 09:58 999 mls/hr .Q1H1M ONE Administration Ondansetron HCl 4 mg 09/12/23 08:58 09/12/23 09:05 Ondansetron 4mg/2ml Vial IV 09/12/23 08:59 4 mg ONCE ONE Administration ORDERS Category Date Time Status ABO/RH Type Stat BBK 09/12/23 09:21 Ordered POCUS Point of Care (ER Only) Stat Exams 09/12/23 08:47 Completed Beta HCG, Quant [HCG,Quantitative] Stat Lab 09/12/23 08:40 Completed Complete Blood Count Auto Diff Stat Lab 09/12/23 08:40 Completed Comprehensive Metabolic Panel Stat Lab 09/12/23 08:40 Completed Lactic Acid Stat Lab 09/12/23 08:58 Ordered Lipase Stat Lab 09/12/23 08:40 Completed Rapid PCR Covid and Flu A/B Stat Lab 09/12/23 10:11 Completed Urinalysis and Microscopic Stat Lab 09/12/23 10:12 Completed US OB transvaginal Stat Ultrasound 09/12/23 08:58 Completed Medical Decision Narrative: 28-year-old female G5, P2 SA 2, presents today for evaluation concerning right lower abdominal cramping, nausea, vomiting, decreased p.o over the past several days. Has also had generalized fatigue. Her abdominal pain is nonradiating. Denies having any fevers, chills, chest pain, shortness of breath, dysuria or hematuria. Has not had any pain medicines this morning. No further complaints. On assessment, patient was hemodynamically stable and in no acute distress. Mild right lower quadrant/suprapubic tenderness to palpation. Abdomen otherwise soft and nondistended. Other physical exam findings were unremarkable. Differential diagnoses include but not limited to , ovarian cyst, ovarian torsion, gastritis, gastroenteritis, viral syndrome, UTI, low suspicion for appendicitis, among others. Patient's lab workup today has been nonactionable. No elevation in WBC on CBC. No anemia. Beta quant of 271,770 trending up appropriately. No signs of UTI on urinalysis. Negative COVID and influenza swab. On reassessment patient lore medically stable and in no acute distress. She feels improved after IV fluids and Tylenol. I did a bedside ultrasound to assess heart rate and it was notably 174 bpm. I did order a formal ultrasound and it revealed a viable IUP at 8 weeks 4 days gestation with a heart rate of 176 bpm. I discussed ED workup results with patient and current plan to discharge. She has an [facility] follow-up appointment on the of this month which she will keep. I provided her with strict return ED precautions. She verbalized understanding and agreement with plan and was subsequently discharged home hemodynamically stable and in no acute distress. Able to tolerate oral intake prior to discharge. Critical Care Critical Care Time Critical Care Time: No
[2023-09-12 09:14] LABS: Alanine Aminotransferase 23 U/L (12-78); Alkaline Phosphatase 39 U/L (38-126); Aspartate Amino Transferase 45 U/L (14-36); Bilirubin,Total 1.5 mg/dl (0.2-1.3); Blood Urea Nitrogen 11 mg/dl (7-17); Creatinine Clearance Estimated 146 mL/min (50-200); Estimated Glomerular Filt Rate 146 ml/min (>60); GFR (African American) 177 ML/MIN (>60)
[2023-09-12 09:15] LABS: Albumin/Globulin Ratio 1.3 (1.1-1.8); Anion Gap 13.2 mEq/L (5-15); Calcium 9.5 mg/dl (8.4-10.2); Carbon Dioxide 23 mmol/L (22.0-30.0); Glucose 102 mg/dl (74-100); Lipase 46 U/L (23-300)
[2023-09-12 09:18] LABS: Basophils % 0.5 % (0.1-2.0); Eosinophils # 0.1 K/mm3 (0.0-0.4); Hematocrit 41.7 % (37.0-47.0); Hemoglobin 14.3 g/dL (12.2-16.2); Lymphocytes # 1.7 K/mm3 (0.7-4.5); Lymphocytes % 26.3 % (10-50); Mean Corpuscular HGB Conc 34.2 g/dL (31.8-35.4); Mean Corpuscular Hemoglobin 30.7 pg (27.0-31.2); Mean Corpuscular Volume 89.9 fl (81-99); Mean Platelet Volume 8.5 fl (7.4-10.4); Monocytes # 0.4 K/mm3 (0.1-1.0); Monocytes % 5.7 % (1.7-9.3); Neutrophils # 4.3 K/mm3 (1.8-7.8); Neutrophils % 66.5 % (37.0-80.0); Platelet Count 185 K/mm3 (142-424); Red Blood Count 4.64 M/mm3 (4.20-5.40); Red Cell Distribution Width 12.7 % (11.5-17.5); White Blood Count 6.5 K/mm3 (4.8-10.8)
[2023-09-12 09:43] VITALS: BP 104/65; PULSE 77; RESP 20; O2SAT 98
[2023-09-12 10:14] LABS: HCG,Quantitative 271770 mIU/ml (0-5.42)
[2023-09-12 10:17] LABS: Coronavirus 19, PCR Not Detected (NotDetected); Influenza A, PCR Not Detected (NotDetected); Influenza B, PCR Not Detected (NotDetected)
[2023-09-12 10:21] LABS: Microscopic, Urine URINE MICROSCOPIC (MICROSCOPIC)
[2023-09-12 10:33] LABS: Appearance,Urine CLEAR (Clear); Bilirubin,Urine Negative (Negative); Blood, Urine Negative (Negative); Color,Urine YELLOW (Yellow); Glucose,Urine (UA) Negative (Negative); Ketones,Urine Negative (Negative); Leukocyte Esterase,Urine Negative (Negative); Nitrate,Urine Negative (Negative); Protein,Urine Negative (Negative); Urobilinogen,Urine 0.2 EU/dl (0.2)
[2023-09-12 11:13] LABS: Amorphous Sediment,Urine Trace /lpf
[2023-09-12 11:24] VITALS: BP 116/70; PULSE 77; RESP 18; TEMP 36.5; O2SAT 99
== END 2023-09-12 11:25 | disposition home or self-care (01) ==
PROVIDERS: Emergency Provider Emergency Medicine; PCP Physician Assistant
DX: R10.30 Lower abdominal pain, unspecified; O21.9 Vomiting of pregnancy, unspecified; Z3A.08 8 weeks gestation of pregnancy; R53.83 Other fatigue
CPT/HCPCS: 76817; 80053; 81001; 83690; 84702; 85025; 87636; 96361; 96374; 99284; J2405

== ENCOUNTER 2023-09-27 16:38 | Outpatient (CLI) | payer BC, OTHER, SELFPAY | END 2023-09-27 23:59 | LOC: LAB.DROPOF 16:38 | PROVIDERS: PCP Obstetrics & Gynecology; Visit Provider Obstetrics & Gynecology | DX: O26.891 Other specified pregnancy related conditions, first trimester (principal); Z3A.11 11 weeks gestation of pregnancy; B96.29 Other Escherichia coli [E. coli] as the cause of diseases classified elsewhere; B95.2 Enterococcus as the cause of diseases classified elsewhere | CPT/HCPCS: 87086 ==

== ENCOUNTER 2023-10-27 16:36 | Outpatient (CLI) | payer BC, OTHER, SELFPAY ==
--- NOTE | 2023-10-27 16:38 | US_ITS ---
PROCEDURE: US OB LIMITED POSITION CLINICAL INDICATION: vag bleeding, brownish discharge-look at placenta COMPARISON: US US OB TRANSVAGINAL from 09/12/2023 FINDINGS: Transabdominal and transvaginal sonographic images of the uterus were obtained. The following parameters are obtained: From her established due date she is 15weeks 3days Viable fetus in the breech presentation with an anterior placenta grade 1. The placenta is 1.7 cm-1.9 cm away from the internal cervical os and is considered low lying. There is a placental Jane at the inferior aspect of the placenta anteriorly. This could also be a small area of resolving hematoma. There is an accessory placental lobe seen posteriorly. The cervix measures between 2.9 cm and 3.4 cm transvaginally. heart rate: 156bpm bpm. No obvious anomalies evident. profile seen, three-vessel cord, four chamber heart appear normal. IMPRESSION: 1. Viable fetus in the breech presentation. 2. The placenta is anterior and low-lying, 1.7-1.9 cm from the internal os. There is a placental Jane or possibly a small area of hemorrhage in the inferior aspect of the placenta. 3. The cervix is normal in length and measures 2.9-3.4 cm transvaginally. 4. No obvious anomalies but the anatomical scan was limited. 5. Dr. Driscoll was informed of the findings by the nuclear weapons specialist. Dictated by: Luis Bains MD 10/28/2023 08:09 Luis Bains MD in [facility] 10/28/2023 08:09
== END 2023-10-27 23:59 ==
LOC: RAD 16:36
PROVIDERS: PCP Physician Assistant; Visit Provider Obstetrics & Gynecology
DX: O46.091 Antepartum hemorrhage with other coagulation defect, first trimester (principal); O26.892 Other specified pregnancy related conditions, second trimester; Z3A.15 15 weeks gestation of pregnancy
CPT/HCPCS: 76815

== ENCOUNTER 2023-10-28 08:10 | Outpatient (CLI) | payer BC, OTHER, SELFPAY ==
[2023-10-28 08:46] LABS: Basophils # 0.1 K/mm3 (0-0.2); Basophils % 0.6 % (0.1-2.0); Eosinophils # 0.1 K/mm3 (0.0-0.4); Eosinophils % 1.6 % (0.1-12.0); Hematocrit 38.5 % (37.0-47.0); Hemoglobin 12.5 g/dL (12.2-16.2); Lymphocytes # 1.5 K/mm3 (0.7-4.5); Lymphocytes % 18.9 % (10-50); Mean Corpuscular HGB Conc 32.6 g/dL (31.8-35.4); Mean Corpuscular Hemoglobin 30.8 pg (27.0-31.2); Mean Corpuscular Volume 94.6 fl (81-99); Mean Platelet Volume 9.2 fl (7.4-10.4); Monocytes # 0.6 K/mm3 (0.1-1.0); Monocytes % 7.2 % (1.7-9.3); Neutrophils # 5.6 K/mm3 (1.8-7.8); Neutrophils % 71.6 % (37.0-80.0); Platelet Count 199 K/mm3 (142-424); Red Blood Count 4.07 M/mm3 (4.20-5.40); Red Cell Distribution Width 13.2 % (11.5-17.5); White Blood Count 7.8 K/mm3 (4.8-10.8)
[2023-10-29 08:36] LABS: HIV Screen 4th Generation wRfx Non Reactive (Non Reactive); Rubella Antibodies, IgG 1.35 index (Immune >0.99)
[2023-11-03 11:31] LABS: Hepatitis B Surface Antigen Negative; Hepatitis C Antibody Non Reactive
[2023-11-03 11:32] LABS: Rapid Plasma Reagin Ab Titer Non Reactive
== END 2023-10-28 23:59 ==
LOC: LAB 08:11
PROVIDERS: PCP Physician Assistant; Visit Provider Obstetrics & Gynecology
DX: O26.892 Other specified pregnancy related conditions, second trimester (principal); Z3A.15 15 weeks gestation of pregnancy
CPT/HCPCS: 36415; 85025; 86593; 86703; 86762; 86850; 87340; 87380; G0432

== ENCOUNTER 2023-11-02 14:00 | Outpatient (CLI) | payer BC, OTHER, SELFPAY ==
--- NOTE | 2023-11-02 14:01 | US_ITS ---
PROCEDURE: US OB FOLLOW UP CLINICAL INDICATION: bleeding COMPARISON: US US OB LIMITED POSITION from 10/27/2023 FINDINGS: Transabdominal and transvaginal sonographic images of the pelvis were obtained. The following parameters are obtained: From her established due date she is 16weeks 2days Viable fetus in the cephalic presentation with an anterior placenta grade 1. There is placenta previa with the anterior placenta just covering the internal os. There appears to be a hematoma at the internal os measuring 4.0 cm by 2 cm. The placenta appears hypervascular and follow-up ultrasound is suggested. The cervix measures 3.75 cm heart rate: 161bpm Amniotic fluid index: Appears normal No obvious anomalies evident. Four-chamber heart appears normal. IMPRESSION: 1. Viable fetus in the cephalic presentation. 2. The placenta is anterior and previa just covering the internal cervical os. 3. There is a small hematoma and likely separation of the placenta at the cervical os. 4. The placenta appears hypervascular and follow-up is suggested. 5. The cervix is normal length. Dictated by: Luis Bains MD 11/02/2023 16:24 Luis Bains MD in [facility] 11/02/2023 16:24
== END 2023-11-02 23:59 ==
LOC: RAD 14:01
PROVIDERS: PCP Physician Assistant; Visit Provider Obstetrics & Gynecology
DX: O46.92 Antepartum hemorrhage, unspecified, second trimester (principal); Z3A.15 15 weeks gestation of pregnancy
CPT/HCPCS: 76816

== ENCOUNTER 2023-12-05 13:34 | Outpatient (CLI) | payer BC, OTHER, SELFPAY ==
--- NOTE | 2023-12-05 13:34 | US_ITS ---
PROCEDURE: US OB /MATERNAL DETAIL CLINICAL INDICATION: 20 WK Complete+ Anatomy Scan COMPARISON: US US OB TRANSVAGINAL from 09/12/2023 US US OB FOLLOW UP from 11/02/2023 FINDINGS: Transabdominal sonographic images of the pelvis were obtained. From her established due date she is 21 weeks 1 day. Single viable intrauterine gestation. Cephalic position. Placenta: Anteriorplacenta grade 1. There are multiple placental lakes. There is an average amount of fluid. The cervix appears satisfactory. Closed and measuring 2.84 cm in length. Complete survey performed and was unremarkable on the submitted images as in PACS. No discrete anomalies identified on survey imaging by technologist. Active fetus. Three-vessel cord with satisfactory umbilical cord insertion. 4- chamber heart noted. Situs, aortic arch, LVOT, RVOT, three-vessel view appear normal. Survey of brain & ventricles Unremarkable. Cerebellum, thalamus, choroid plexus, cisterna magna appear normal. Face and neck survey unremarkable. Profile, nasion, lips and nose appeared normal. Diaphragm and chest views unremarkable. Abdomen: Both kidneys noted and unremarkable. Stomach and bladder noted and satisfactory. Spine: Survey of the spine satisfactory with no anomalies identified nor imaged. Cervical, thoracic, lower spine appear normal. Both arms and legs noted. Amniotic Fluid: Adequate. Measurements: Average ultrasound age 21weeks 3days. Estimated due date by ultrasound age 0904/13/2024. Estimated weight 392g BPD = 22weeks 1day HC = 21weeks 3days AC = 21weeks 1day FL = 20weeks 6days Growth Percentile= 37 Heart Rate = 147bpm Cerebellum = 20weeks 4days Humerus = 21weeks 1day HC/AC is 1.21 FL/BPD is 0.65 FL/AC is 0.22 IMPRESSION: 1. Viable fetus in the cephalic presentation with an anterior placenta grade 1. There are multiple placental lakes. 2. Fluid is within normal limits. 3. Anatomical scan appears normal. 4. biometry is consistent with dates. Dictated by: Luis Bains MD 12/05/2023 16:48 Luis Bains MD in [facility] 12/05/2023 16:48
[2023-12-09 19:45] LABS: Parvovirus B19, IgM 0.1 index (0.0-0.8)
== END 2023-12-05 23:59 | disposition home or self-care (01) ==
LOC: RAD 13:34
PROVIDERS: PCP Physician Assistant; Visit Provider Obstetrics & Gynecology
DX: O26.892 Other specified pregnancy related conditions, second trimester (principal); Z36.3 Encounter for antenatal screening for malformations; Z3A.20 20 weeks gestation of pregnancy; Z20.828 Contact with and (suspected) exposure to other viral communicable diseases
CPT/HCPCS: 36415; 76811; 86747

== ENCOUNTER 2024-01-25 07:05 | Outpatient (CLI) | payer BC, SELFPAY ==
[2024-01-25 07:31] LABS: Basophils % 0.5 % (0.1-2.0); Eosinophils # 0.2 K/mm3 (0.0-0.4); Eosinophils % 1.6 % (0.1-12.0); Hematocrit 35.3 % (37.0-47.0); Hemoglobin 11.5 g/dL (12.2-16.2); Lymphocytes # 1.5 K/mm3 (0.7-4.5); Lymphocytes % 16.5 % (10-50); Mean Corpuscular HGB Conc 32.6 g/dL (31.8-35.4); Mean Corpuscular Hemoglobin 30.8 pg (27.0-31.2); Mean Corpuscular Volume 94.4 fl (81-99); Mean Platelet Volume 8.5 fl (7.4-10.4); Monocytes # 0.6 K/mm3 (0.1-1.0); Monocytes % 6.7 % (1.7-9.3); Neutrophils # 6.9 K/mm3 (1.8-7.8); Neutrophils % 74.7 % (37.0-80.0); Platelet Count 192 K/mm3 (142-424); Red Blood Count 3.74 M/mm3 (4.20-5.40); Red Cell Distribution Width 13.7 % (11.5-17.5); White Blood Count 9.2 K/mm3 (4.8-10.8)
[2024-01-25 08:01] LABS: Glucose,Fasting 89 mg/dl (74-100)
--- NOTE | 2024-01-25 08:04 | US_ITS ---
PROCEDURE: US OB FOLLOW UP CLINICAL INDICATION: There are multiple placental lakes COMPARISON: US US OB TRANSVAGINAL from 09/12/2023 US US OB FOLLOW UP from 11/02/2023 US US OB /MATERNAL DETAIL from 12/05/2023 FINDINGS: Transabdominal sonographic images of the pelvis were obtained. The following parameters are obtained: From her established due date she is 27weeks 6days Viable fetus in the cephalic presentation with an anterior placenta grade 2. There continue to be multiple placental lakes that have grown in size. The cervix measures 3.5 cm. heart rate: 149bpm bpm. BPD: 31weeks 0 days, >98 percentile HC: 30weeks 2days, 89 percentile AC: 30weeks 2days, 96 percentile FL: 27weeks 1day, 15 percentile HC/AC: 1.06 FL/BPD: 0.65 FL/AC: 0.19 Growth percentile: 88 Amniotic fluid index: Appears normal. MVP 5.26 cm. No obvious anomalies evident. profile seen, stomach, bladder, kidneys, three-vessel cord, four chamber heart appear normal. IMPRESSION: 1. Viable fetus in the cephalic presentation with an anterior placenta grade 2. 2. The fluid is within normal limits with an MVP of 5.26 cm. 3. There has been good interval growth with the fetus currently somewhat large for gestational age at 89 percentile. The AC is 2 1/2 weeks ahead. 4. Limited anatomical scan appears normal. 5. There continue to be multiple placental lakes that have grown in size. A maternal medicine consult is suggested. Dictated by: Luis Bains MD 01/25/2024 17:00 Luis Bains MD in [facility] 01/25/2024 17:00
[2024-01-25 08:53] LABS: Glucose 1 Hour 114 mg/dL (74-100)
== END 2024-01-25 23:59 | disposition home or self-care (01) ==
LOC: RAD 07:06
PROVIDERS: PCP Physician Assistant; Visit Provider Obstetrics & Gynecology
DX: Z36.2 Encounter for other antenatal screening follow-up (principal); O43.892 Other placental disorders, second trimester; Z3A.27 27 weeks gestation of pregnancy
CPT/HCPCS: 36415; 76816; 82951; 85025

== ENCOUNTER 2024-02-03 12:44 | Outpatient (CLI) | payer BC, SELFPAY ==
[2024-02-03 12:50] VITALS: BMI 23.6
[2024-02-03 12:55] VITALS: BP 134/68; PULSE 98; RESP 18; TEMP 36.8; O2SAT 98; BMI 23.6
[2024-02-03 13:13] VITALS: BMI 23.3
--- NOTE | 2024-02-03 13:16 | US_ITS ---
PROCEDURE INFORMATION: Exam: US Biophysical Profile Without Non-Stress Test Exam date and time: 02/03/2024 1:37 PM Age: 28 years old Clinical indication: Other: Irreg hr; TECHNIQUE: Imaging protocol: US biophysical profile without non-stress testing. COMPARISON: US OB /MATERNAL DETAIL 12/05/2023 1:34 PM FINDINGS: heart rate: 138 bpm. presentation and position: Single fetus cephalic presentation Placenta: Anterior placenta grade 2. Placental lakes demonstrated. Amniotic fluid index: GAY is 17.4 cm. GAY 17.4 cm BIOPHYSICAL PROFILE: breathing (BPP): breathing and movement demonstrated gross body movement (BPP): 2 out of 2. tone (BPP): 2 out of 2. Amniotic fluid (BPP): 2 out of 2. BIOMETRY: Estimated due date (AUA): (AUA) 04/19/2024. Umbilical cord vessel number: Three-vessel cord demonstrated MATERNAL ANATOMY: Cervix: Cervical length measures 3.04 cm. Cervix 3.04 cm Urinary bladder: Bladder demonstrated Other findings: Four-chamber heart demonstrated; Stomach demonstrated IMPRESSION: Single intrauterine gestation 29 weeks 1 day
[2024-02-03 13:26] LABS: Microscopic, Urine URINE MICROSCOPIC (MICROSCOPIC)
[2024-02-03 13:30] LABS: Appearance,Urine CLEAR (Clear); Bilirubin,Urine Negative (Negative); Blood, Urine Negative (Negative); Color,Urine YELLOW (Yellow); Glucose,Urine (UA) Negative (Negative); Ketones,Urine 1+ (Negative); Leukocyte Esterase,Urine TRACE (Negative); Nitrate,Urine Negative (Negative); Protein,Urine Negative (Negative); Urobilinogen,Urine 0.2 EU/dl (0.2)
[2024-02-03 13:33] LABS: Fetal Membrane Rupture (Rapid) Negative (Negative)
[2024-02-03 13:40] LABS: WBC,Urine Occasional #/hpf (0-3)
[2024-02-03 13:42] LABS: Benzodiazepines Screen,Urine Negative ng/ml (<200)
[2024-02-03 13:43] LABS: Amphetamine/Metha Screen,Urine Negative ng/ml (<1000); Barbiturates Screen,Urine Negative ng/ml (<200)
[2024-02-03 13:44] LABS: Cannabinoid Screen,Urine Negative ng/ml (<50)
[2024-02-03 13:45] LABS: Cocaine Screen,Urine Negative ng/ml (<300); Methadone Screen,Urine Negative ng/ml (<300)
[2024-02-03 13:46] LABS: Opiate Screen,Urine Negative ng/ml (<300); Phencyclidine Screen,Urine Negative ng/ml (<25)
== END 2024-02-03 14:45 | disposition home or self-care (01) ==
LOC: OBOUT 12:45 → OB 12:46
PROVIDERS: PCP Physician Assistant; Visit Provider Obstetrics & Gynecology
DX: O42.913 Preterm premature rupture of membranes, unspecified as to length of time between rupture and onset of labor, third trimester (principal); O36.8330 Maternal care for abnormalities of the fetal heart rate or rhythm, third trimester, not applicable or unspecified; Z3A.29 29 weeks gestation of pregnancy
CPT/HCPCS: 76811; 76819; 76820; 80307; 81001; 84112; G0463

== ENCOUNTER 2024-02-16 13:44 | Outpatient (CLI) | payer BC, SELFPAY ==
[2024-02-16 13:58] LABS: Adenovirus,PCR Not Detected (NotDetected); Bordetella Pertussis Not Detected (NotDetected); Chlamydophila Pneumoniae, PCR Not Detected (NotDetected); Coronavirus 19, PCR Not Detected (NotDetected); Coronavirus 229E Not Detected (NotDetected); Coronavirus NL63 Not Detected (NotDetected); Coronavirus OC43 Not Detected (NotDetected); Coronovirus HKU1,PCR Not Detected (NotDetected); Human Metapneumovirus Not Detected (NotDetected); Influenza A, PCR Not Detected (NotDetected); Influenza AH1, 2009 Not Detected (NotDetected); Influenza AH1, PCR Not Detected (NotDetected); Influenza AH3,PCR Not Detected (NotDetected); Influenza B, PCR Not Detected (NotDetected); Mycoplasma Pneumoniae, PCR Not Detected (NotDetected); Parainfluenza 1, PCR Not Detected (NotDetected); Parainfluenza 2, PCR Not Detected (NotDetected); Parainfluenza 3, PCR Not Detected (NotDetected); Parainfluenza 4, PCR Not Detected (NotDetected); Respiratory Syncytial Virus Not Detected (NotDetected); Rhinovirus/Enterovirus Not Detected (NotDetected)
== END 2024-02-16 23:59 | disposition home or self-care (01) ==
LOC: LAB 13:44
PROVIDERS: PCP Physician Assistant; Visit Provider Obstetrics & Gynecology
DX: R05.9 Cough, unspecified (principal)
CPT/HCPCS: 87581; 87632; 87635; 87798

== ENCOUNTER 2024-02-27 11:04 | Outpatient (CLI) | payer BC, SELFPAY ==
[2024-02-27 11:23] VITALS: BMI 23.6
[2024-02-27 11:46] VITALS: BP 109/73; PULSE 98; RESP 22; TEMP 36.6; O2SAT 95
[2024-02-27 11:52] VITALS: BMI 23.6
--- NOTE | 2024-02-27 12:03 | XR_ITS ---
FINAL REPORT CLINICAL HISTORY: Severe Cough COMPARISON: 01/25/2022 FINDINGS: A portable view of the chest was obtained. Cardiac and mediastinal silhouettes are within normal limits. There is a right basilar opacity, pneumonia not excluded. There is no pleural effusion or pneumothorax. IMPRESSION: Right basilar opacity. Pneumonia not excluded. Reviewed, Interpreted and Dictated by Portia Fraser MD Transcribed by Eileen Pathak Authenticated and [facility]
--- NOTE | 2024-02-27 12:48 | P.CONS_ITS ---
History of Present Illness *Admission Date: 02/27/24 *Reason for visit:: cough *History of present illness: Was controlled 28-year-old female who is 32 weeks . States she started coughing around February 01. Cough is only gotten worse and become more productive of sputum. Denies any fever but is coughing to the point her ribs are hurting. Has been on cough medicine at home for the better part of the past week with no improvement. Was in [place] this past week, did not notice any change or improvement. Feeling fatigued and a little short of breath. Coughing up thick yellow sputum. 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 Does not smoke, or live with smokers. No history of asthma or COPD. Medicine consulted to evaluate and assist with management of her persistent cough and symptoms. Patient pleasant and in mild distress on exam. On room air. No previous antibiotics taken for her symptoms. [facility] Disclaimer: The information contained in this section may have been updated after the patient was seen, as this information can be updated by other users. Medical History Mood swings History of vaccination against human papillomavirus Surgical History No significant past surgical history Family History Hypertension Social History Smoking Status: Never smoker alcohol intake: never substance use type: denies use current occupational status: other Travel in the last 8 weeks: None household members: spouse and children housing: house Review of Systems Review of Systems Review of systems (narrative): 14 point review of systems performed, pertinent positives and negatives as per HPI Exam Data for Last 24 hours Vital signs and Labs for Last 24 Hours: Temp Pulse Resp BP Pulse Ox O2 Del Method 97.8 F 98 H 22 109/73 L 95 Room Air 02/27/24 11:46 02/27/24 11:46 02/27/24 11:46 02/27/24 11:46 02/27/24 11:46 02/27/24 11:46 I & O for Last 24 hours: Intake & Output 02/24/24 02/25/24 02/26/24 02/27/24 23:59 23:59 23:59 23:59 Weight 66.224 kg Constitutional Constitutional: mild distress, average body habitus and cooperative *Routine HEENT Exam Head: Present normocephalic Eye: Present EOMI and PERRL ENT: Present mucous membranes moist *Routine Neck Exam Neck: Present supple; Absent lymphadenopathy *Routine Respiratory Exam Respiratory: Present crackles; Absent rhonchi or wheezes Comments: Crackles right lower lung field posterior, inspiratory squeak. *Routine Cardiovascular Exam Cardiovascular: Present RRR *Routine Abdominal Exam Abdominal: Present soft and normoactive bowel sounds; Absent tenderness *Routine Extremities Exam Extremities: Absent cyanosis, clubbing or edema *Routine Skin Exam Skin: Present warm; Absent rash *Routine Neurological Exam Neurological: Present alert and oriented X3 Meds Home Medications and Allergies Home Medications ?Medication ?Instructions ?Recorded ?Confirmed ?Type vits no.126-ferrous fum tab PO DAILY 10/27/23 02/16/24 History 28 mg iron-folic acid 800 mcg tablet (Classic ) amoxicillin 500 mg-potassium 1 tab PO TID #30 tabs 02/27/24 Rx clavulanate 125 mg tablet (Augmentin) azithromycin 250 mg tablet See Rx Instructions PO .COMPLEX #6 02/27/24 Rx tabs promethazine 6.25 mg-codeine 10 5 ml PO Q6H PRN cough #118 mL 02/27/24 Rx mg/5 mL syrup promethazine 6.25 mg-codeine 10 5 ml PO Q6H PRN cough #118 mL 02/27/24 Rx mg/5 mL syrup New Prescriptions to Start Prescriptions: amoxicillin-pot clavulanate [Augmentin] Luis Bains azithromycin Luis Bains promethazine-codeine Luis Bains promethazine-codeine Luis Bains Allergies Allergy/AdvReac Type Severity Reaction Status Date / Time buspirone AdvReac Intermediate Dizziness Verified 02/16/24 13:09 Results Labs Labs: All other labs normal. Assessment and Plan *Assessment and plan (1) Pneumonia involving right lung: Status: Acute Qualifiers: Pneumonia type: due to unspecified organism Lung location: lower lobe of lung Qualified Code(s): J18.9 - Pneumonia, unspecified organism Category: Medical Code(s): J18.9 - Pneumonia, unspecified organism (2) 32 weeks gestation of : Status: Acute Category: Medical Code(s): Z3A.32 - 32 weeks gestation of Plan 28-year-old female with persistent cough for most a month. Medicine consulted to evaluate. Chest x-ray obtained, per my review has increased right lower lobe markings/density and blurring of right heart border. Chest exam with inspiratory squeak and crackles in lower right posterior lung field. Yellow sputum. Recommend respiratory panel to evaluate. Clinically patient has right lower lobe pneumonia. 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 Recommend azithromycin (Z-Naeem) for 5 days and 7 days of Augmentin 500 mg 3 times a day. Recommend cough medicine at cardiac catheterization technician's discretion as appropriate given her state to help with her coughing due to severity of her rib pain. Recommend close follow-up to evaluate improvement. Differential diagnosis includes viral pneumonia, bacterial pneumonia, atypical pneumonia (mycoplasma), pertussis given persistent cough and lack of recent vaccination. Feel patient is clinically stable to discharge home and treat as an outpatient. Low threshold to admit if she develops worsening dyspnea, new oxygen requirement, fever or persistent symptoms in light of broad antibiotics. Thank you for the opportunity to assist with management and consult on this patient.
--- NOTE | 2024-02-27 13:53 | P.PN_ITS ---
Subjective *Date: 02/27/24 *Time: 14:08 Interval history: She is a 28-year-old 3 para 1 at 32 weeks gestational age. She complains of cough since about February 01. She says the cough is getting worse and she has rib pain as a result of coughing so hard. She was seen in the ER previo usly and worked up for viral illnesses as well as bacterial illnesses. At that time she was negative. Portable chest x-ray done today shows a right basilar opacity possible pneumonia. She has been coughing up yellow, thick sputum. She denies fever or chills. Medical Exam Vital signs and Labs for Last 24 Hours: Vital Signs Temp Pulse Resp BP Pulse Ox O2 Del Method 02/27/24 11:46 97.8 F 98 H 22 109/73 L 95 Room Air Intake and Output 02/27/24 02/27/24 02/27/24 03:59 11:59 19:59 Other: Weight 146 lb I & O for Labs for Last 24 Hours: Intake & Output 02/25/24 02/26/24 02/27/24 02/28/24 11:59 11:59 11:59 11:59 Weight 146 lb Head: Present normocephalic ENT: Present normal exam Neck: Present normal inspection Respiratory: Present normal respiratory effort, able to speak in complete sentences and symmetric chest movement; Absent accessory muscle use Comment:: She has some decreased air entry in the right base as well as some expiratory intermittent wheezes. She has some coarse inspiratory sounds. Cardiac: Present Reg Rate and Rhythm Assessment and Plan *Assessment and plan (1) Pneumonia involving right lung: Status: Acute Qualifiers: Lung location: lower lobe of lung Pneumonia type: due to unspecified organism Qualified Code(s): J18.9 - Pneumonia, unspecified organism Category: Medical Code(s): J18.9 - Pneumonia, unspecified organism Plan Her chest x-ray shows a right basilar possible pneumonia. We had her seen by Dr. Jimenes and he suggested azithromycin Z-Naeem as well as Augmentin 3 times daily for 1 week. I have also given her a prescription for codeine and Phenergan to help with her cough. She has an appointment in [address] Driscoll. Nonstress test is reactive. Baby is active.
[2024-02-27 16:05] LABS: Adenovirus,PCR Not Detected (NotDetected); Bordetella Pertussis Not Detected (NotDetected); Chlamydophila Pneumoniae, PCR Not Detected (NotDetected); Coronavirus 19, PCR Not Detected (NotDetected); Coronavirus 229E Not Detected (NotDetected); Coronavirus NL63 Not Detected (NotDetected); Coronavirus OC43 Not Detected (NotDetected); Coronovirus HKU1,PCR Not Detected (NotDetected); Human Metapneumovirus Not Detected (NotDetected); Influenza A, PCR Not Detected (NotDetected); Influenza AH1, 2009 Not Detected (NotDetected); Influenza AH1, PCR Not Detected (NotDetected); Influenza AH3,PCR Not Detected (NotDetected); Influenza B, PCR Not Detected (NotDetected); Parainfluenza 1, PCR Not Detected (NotDetected); Parainfluenza 2, PCR Not Detected (NotDetected); Parainfluenza 3, PCR Not Detected (NotDetected); Parainfluenza 4, PCR Not Detected (NotDetected); Respiratory Syncytial Virus Not Detected (NotDetected); Rhinovirus/Enterovirus Not Detected (NotDetected)
[2024-03-01 09:16] LABS: Mycoplasma Pneumoniae, PCR Detected (NotDetected)
== END 2024-02-27 13:40 | disposition home or self-care (01) ==
LOC: OBOUT 11:05 → OB 11:06
PROVIDERS: PCP Physician Assistant; Visit Provider Nurse Practitioner Obstetrics & Gynecology
DX: O99.513 Diseases of the respiratory system complicating pregnancy, third trimester (principal); Z3A.32 32 weeks gestation of pregnancy; J18.9 Pneumonia, unspecified organism
CPT/HCPCS: 71045; 87070; 87205; 87581; 87632; 87635; 87798; G0463

== ENCOUNTER 2024-03-21 11:40 | Outpatient (CLI) | payer BC, SELFPAY | END 2024-03-21 23:59 | disposition home or self-care (01) | LOC: LAB.DROPOF 03-22 11:40 | PROVIDERS: PCP Obstetrics & Gynecology; Visit Provider Obstetrics & Gynecology | DX: Z34.90 Encounter for supervision of normal pregnancy, unspecified, unspecified trimester (principal) | CPT/HCPCS: 86403 ==